=== PATIENT | female | born 1980 | race African-American/Black ===

== ENCOUNTER 2017-07-26 15:49 | Emergency (ER) | payer MEDICAID ==
[~2017-07-26] VITALS: Ht 170.2 cm; Wt 104.5 kg
[~2017-07-26 15:49] MED LIST: ALBU0.63 NEB
[2017-07-26 15:50] VITALS: BP 168/107
== END 2017-07-26 18:22 | disposition home or self-care (01) ==
LOC: ED 18:00
DX: S76.011A Strain of muscle, fascia and tendon of right hip, initial encounter (principal); S76.911A Strain of unspecified muscles, fascia and tendons at thigh level, right thigh, initial encounter; S90.32XA Contusion of left foot, initial encounter; W01.0XXA Fall on same level from slipping, tripping and stumbling without subsequent striking against object, initial encounter; Y93.01 Activity, walking, marching and hiking; Y92.488 Other paved roadways as the place of occurrence of the external cause; Y99.8 Other external cause status
CPT/HCPCS: 99284

== ENCOUNTER 2020-01-17 07:55 | Emergency (ER) | payer MEDICAID, OTHER ==
[~2020-01-17] VITALS: Ht 170.2 cm; Wt 122.7 kg
[2020-01-17] MEDS ORDERED: SODIUM CHLORIDE FLUSH 10ML SYR IVF ONE (08:30)
--- NOTE | 2020-01-17 08:55 | NUR ---
PT C/O LE SWELLING. PT OUT OF HER ASTHMA MEDS. PT DRANK LARGE AMOUNTS OF ALCOHOL THIS AM. PT RESPONDS TO VOICE AND ANSWERS QUESTIONS, BUT QUICKLY FALLS BACK ASLEEP.
[2020-01-17 09:27] LABS: BASOPHILS % (AUTO) 1 % (0-1); EOSINOPHILS % (AUTO) 5 % (1-7); LYMPHOCYTES % (AUTO) 17 % (22-44); MEAN CORPUSCULAR HEMOGLOBIN 27.6 pg (27.0-34.8); MEAN CORPUSCULAR HGB CONC 32.3 g/dL (32.4-35.8); MEAN PLATELET VOLUME 8.1 fL (7.4-10.4); MONOCYTES % (AUTO) 6 % (2-9); NEUTROPHILS % (AUTO) 72 % (42-75); PLATELET COUNT 371 x10^3/uL (130-400); RED BLOOD COUNT 3.57 x10^6/uL (3.82-5.3)
[2020-01-17 09:32] LABS: ALBUMIN 3.2 g/dL (3.4-5.0); ANION GAP 8 mmol/L (5-15); CALCIUM 8.5 mg/dL (8.5-10.1); CHLORIDE 104 mmol/L (98-107)
[2020-01-17 09:34] LABS: MD NO
[2020-01-17 09:37] LABS: ALANINE AMINOTRANSFERASE 17 U/L (12-78); ALKALINE PHOSPHATASE 95 U/L (45-117); BILIRUBIN,TOTAL 0.7 mg/dL (0.2-1.0); CREATININE 0.85 mg/dL (0.55-1.02); TOTAL PROTEIN 7.6 g/dL (6.4-8.2); TROPONIN I < 0.015 ng/mL (0.000-0.045)
--- NOTE | 2020-01-17 09:51 | NUR ---
TASK RN NOTE: PT REFUSES TO PROVIDE UA.
--- NOTE | 2020-01-17 10:30 | NUR ---
PT ASSISTED TO WHEELCHAIR TO THE BATHROOM FOR URINE SAMPLE. PT STATES HER LOWER BACK AND LEGS HURT WITH STANDING. PT STATES THAT THIS HAS BEEN HAPPENING FOR AWHILE, HOWEVER IT SEEMS TO BE GETTING WORSE.
[2020-01-17 10:46] LABS: MICROSCOPIC INDICATED
[2020-01-17 10:49] LABS: AMPHETAMINE SCREEN, URINE Positive (Negative); BARBITURATE SCREEN, URINE Negative (Negative); BENZODIAZEPINE SCREEN, URINE Negative (Negative); CANNABINOID SCREEN, URINE Negative (Negative); COCAINE SCREEN, URINE Negative (Negative); METHADONE SCREEN, URINE Negative (Negative); OPIATE SCREEN, URINE Negative (Negative)
[2020-01-17] MEDS ORDERED: POTASSIUM CHLORIDE 20 MEQ TAB.ER.PRT PO ONE (11:00)
--- NOTE | 2020-01-17 11:03 | NUR ---
VASCULAR STUDY BEING COMPLETED AT BEDSIDE
[2020-01-17] MEDS ORDERED: POTASSIUM CHLORIDE 20 MEQ TAB.ER.PRT ONE (12:10)
--- NOTE | 2020-01-17 12:30 | NUR ---
PT SLEEPING SOUNDLY. LAB AT BEDSIDE DRAWING BLOOD WHICH ROUSED PT. PT GIVEN POTASIUM ORDERED. BACK AT BEDSIDE. STATES THEY HAD BEEN UP GAMBLING ALL NIGHT AND THAT WHEN SHE SLEEPS, SHE SLEEPS LIKE A BEAR. FURTHER DISCUSSED CONCERN REGARDING BLOOD PRESSURE AND ASKED IF PT HAS REGULAR MD. STATES PT DOES NOT AND THAT HE TRIES TO GET HER TO SEE DOCTOR BUT SHE DOES NOT WANT TO. PT AWAITING HEAD CT. WILL CONTINUE TO MONITOR
--- NOTE | 2020-01-17 13:15 | NUR ---
PT REFUSING CT SCAN- RN AWARE
--- NOTE | 2020-01-17 13:50 | NUR ---
Break RN: assumed care of pt on behalf of primary RN for lunch break only attempting to D/C pt. pt is sleeping and uncooperative with getting up pt at bedside
--- NOTE | 2020-01-17 14:00 | NUR ---
Break RN: pt is awake, attempted to give pt D/C instructions, pt refuses to discuss instructions. pt states "I need to go to the fucking bathroom" attempted to inform pt that the BR was next to the D/C desk, pt states "I don't fucking care, get out of my way" pt ambulated to BR without assist but under observation by this RN pt refusing to wear mask at this time.
--- NOTE | 2020-01-17 14:05 | NUR ---
Break RN: pt back to room attempted to give pt D/C instructions. pt uncooperative. pt demanding to see provider to review her test results. have attempted to discuss pt treatment and medications, pt states that she alberta only speak to her doctor
--- NOTE | 2020-01-17 14:10 | NUR ---
Break RN: Patricia HOLDER at bedside to discuss pt workup and test results. pt is verbally aggressive and argumentative. pt wants Patricia to research which pharmacy will take her insurance. pt swearing pt reminded mulitple times and given repeated education regarding wearing her mask. pt uncooperative
--- NOTE | 2020-01-17 14:20 | NUR ---
have attmepted to give D/C instructions multilple times. pt states that all her questions were answered by GALLO Gomez. attempted to escort pt to checkout desk. pt is ambulatory but refuses to walk to checkout. pt states "I am not fucking walking anywhere, you better find something for me to ride on" WC steve to room. pt insisting that this RN get her off of the gurney and onto WC. pt states "you are the nurse, you are supposed to help me. You better fucking get me up" pt out of department via with SO
--- NOTE | 2020-01-17 14:21 | NUR ---
report from rosa maria reid. as
[2020-01-17 14:34] VITALS: BP 188/99
== END 2020-01-17 14:37 | disposition home or self-care (01) ==
LOC: ED 13:00
DX: R60.0 Localized edema (principal); D64.9 Anemia, unspecified; F15.10 Other stimulant abuse, uncomplicated; E87.6 Hypokalemia; M79.661 Pain in right lower leg; M79.662 Pain in left lower leg; I10 Essential (primary) hypertension; E66.01 Morbid (severe) obesity due to excess calories; Z68.41 Body mass index [BMI] 40.0-44.9, adult; Z90.49 Acquired absence of other specified parts of digestive tract
CPT/HCPCS: 36415; 36600; 71045; 80053; 80307; 81001; 82803; 83690; 83880; 84484; 85025; 85379; 87086; 93005; 93970; 99285